=== PATIENT | male | born 1960 | race African-American/Black ===

== ENCOUNTER → 2018-05-14 15:45 | Outpatient (CLI) | payer BC, SELFPAY ==
[2018-05-14 15:51] LABS: Bacteria 0 SEEN /hpf (None Seen); Red Blood Cells-Urine 0 SEEN /hpf (0-5)
[2018-05-14 17:30] LABS: Absolute Lymphocyte Count 1.38 X10^3/ul (0.83-4.51); Absolute Neutrophil Count 3.1 X10^3/uL (2.0-7.7); Basophil# 0.03 X10^3/uL; Basophil% 0.6 % (0-1); Color, Urine Yellow (Yellow); Eosinophil# 0.23 X10^3/uL; Eosinophils% 4.4 % (0-5); Glucose, Dipstick Normal (Normal); Hematocrit 49.6 % (40-54); Hemoglobin 16.5 g/dl (13.0-16.5); Ketone-Dipstick Negative (Negative); Leukocyte Esterase-Dipstick 25 /ul (Negative); Lymphocyte # 1.38 X10^3/ul (4.0); Lymphocyte % 26.4 % (19-41); Mean Corp Hgb Conc 33.3 g/gl (32-36); Mean Corpuscular Hgb 32.8 pg (27.0-32.0); Mean Corpuscular Volume 98.6 fL (80-94); Mean Platelet Vol. 11.4 fl (6.2-12.0); Monocyte# 0.49 X10^3/uL; Monocyte% 9.4 % (0-10); Neutrophil # 3.09 X10^3/uL (2.7-7.7); Nitrite-Dipstick Negative (Negative); Occult Blood-Urine Negative /ul (Negative); Platelet Count 244 K/mm3 (150-450); Protein-Dipstick Negative (Negative); RBC Distribution Width CV 13.3 % (11.6-14.6); RBC Distribution Width SD 48.1 fl (35.1-43.9); Red Blood Count 5.03 M/mm3 (4.6-6.2); Specific Gravity, Urine 1.025 (1.002-1.030); Urine Bilirubin Dipstick Negative (Negative); Urine Clarity Clear (Clear); Urine Urobilinogen 1 mg/dl (Normal); White Blood Count 5.2 K/mm3 (4.4-11.0)
[2018-05-14 17:31] LABS: POSITIVE COUNT NO; POSITIVE DIFFERENTIAL NO; POSITIVE MORPHOLOGY NO
[2018-05-14 17:47] LABS: Squamous Epithelial Cells - UA 0-5 SEEN /hpf (0-5); White Blood Cells 0-5 SEEN /hpf (0-5)
[2018-05-14 17:48] LABS: Mucous, Urine 1+ /hpf (<or=2+)
[2018-05-14 17:50] LABS: Hemoglobin A1c 5.3 % (4.2-6.3)
[2018-05-14 17:58] LABS: Vitamin B12 341 pg/mL (211-911); Vitamin D,25 Hydroxy 9.9 ng/mL (29.95-100.01)
[2018-05-14 18:03] LABS: AST(SGOT) 19 U/L (15-37); Alanine Aminotransfer ALT/SGPT 31 U/L (16-61); Albumin, Serum 3.5 g/dL (3.2-5.0); Alkaline Phosphatase 85 U/L (45-117); Anion Gap 8 (5-15); BUN 13 mg/dL (7-18); BUN/Creat Ratio 14.4 RATIO (10-20); Calcium,Total 8.2 mg/dL (8.5-10.1); Chloride 110 mmol/L (98-107); Cholesterol 167 mg/dL (200); EST Glomerular Filtration Rate 92 mL/min (>60); Est Glom Filt Rate - Afr Amer 111 mL/min (>60); Globulin 3.6 g/dL (2.2-4.2); Glucose 94 mg/dL (74-106); High Density Lipoprotein 44 mg/dL; Potassium 3.9 mmol/L (3.5-5.1); Protein, Total 7.1 g/dL (6.4-8.2); Sodium Level 140 mmol/L (136-145); Thyroid Stim Hormone (TSH) 0.98 uIU/mL (0.358-3.74); Triglycerides 121 mg/dL; Very Low Density Lipoprotein 24 mg/dL (5-40)
[2018-05-19 14:50] LABS: Testosterone, Free 8.97 ng/dL (5.00-21.00)
[2018-05-20 07:57] LABS: Testosterone, % Free 1.24 % (1.50-4.20); Testosterone, Total 723 ng/dL (264-916)
== END ==
PROVIDERS: Family Provider Family Medicine; PCP Family Medicine; Visit Provider Family Medicine
DX: R53.83 Other fatigue (principal); F52.21 Male erectile disorder; Z83.3 Family history of diabetes mellitus; Z12.5 Encounter for screening for malignant neoplasm of prostate
CPT/HCPCS: 36415; 80053; 80061; 81001; 82306; 82607; 83036; 84153; 84402; 84403; 84443; 85025; G0103

== ENCOUNTER → 2018-06-26 15:48 | Outpatient (CLI) | payer BC, SELFPAY | PROVIDERS: Visit Provider Urology | DX: R97.20 Elevated prostate specific antigen [PSA] (principal) ==

== ENCOUNTER → 2018-06-27 09:55 | Outpatient (CLI) | payer BC, SELFPAY ==
--- NOTE | 2018-06-26 08:00 | PROSBIL_PTH ---
PATIENT: ERNESTO BAZAN LOC: [facility] U#:[id number] AGE/SX: 65/M ROOM: RE06/27/[address]: Dr. Bandar Oliva MD : 1960 BED: DIS: SPEC #: [id number] RECD: 06/26/18 15:48 STATUS: ANSRIN RIRI #: [id number] JOHNNIE: 06/26/18 08:[address]: Bandar Oliva DEPT: SURGICAL PATHOLOGY RECD BY: Anders Quinn ENTERED: 06/27/18 10:32 SP TYPE: PROST BX CHIKI DR: Dr. Primitivo You MD Tissues: A - PROSTATE RIGHT B - PROSTATE RIGHT C - PROSTATE RIGHT D - PROSTATE LEFT E - PROSTATE LEFT F - PROSTATE LEFT Procedures: PROSTATE BX HEADER OPERATION: Prostate biopsy PRE-OP DIAGNOSIS: R97.20 TISSUE SUBMITTED: A - Right apex, B - Right mid, C - Right base, D - Left apex, E - Left mid, F - Left base MICROSCOPIC DIAGNOSIS A. Right prostate, apex, core biopsy: Adenocarcinoma: [place] grade: 6 (3+3) Cores involved: 1 out of 1 Tissue involved: 65% Perineural invasion ? focally present Greatest tumor length: 7 mm B. Right prostate, mid, core biopsy: Adenocarcinoma: [place] grade: 6 (3+3) Cores involved: 2 out of 2 Tissue involved: 55% Perineural invasion: focally present Greatest tumor length: 8 mm C. Right prostate, base, core biopsy: Mild chronic inflammation. D. Left prostate, apex, core biopsy: Adenocarcinoma: Tiesha grade: 6 (3+3) Cores involved: 1 out of 1 Tissue involved: 70% Perineural invasion: Not identified Greatest tumor length: 7mm (discontinuous) E. Left prostate, mid, core biopsy: Adenocarcinoma: Tiesha grade: 6(3+3) Cores involved: 2 out of 2 Perineural invasion: focally present Greatest tumor length: 12 mm (discontinuous) F. Left prostate, base, core biopsy: Adenocarcinoma: Tiesha grade: 6 (3+3) Cores involved: 2 out of 2 Perineural invasion: focally present Greatest tumor length: 9 mm AM:ramon 06/30/18 MICROSCOPIC DESCRIPTION Slides are reviewed. GROSS DESCRIPTION A - Received is one container designated prostate, right apex. The specimen consists of one elongated fragments of light burns-white soft tissue each measuring 1.5 cm in length and 0.1 cm in diameter. The specimen is totally submitted in one cassette. B - Received is one container designated prostate, right mid. The specimen consists of two elongated fragments of light burns-white soft tissue each measuring 1.2 cm in length and 0.1 cm in diameter. The specimen is totally submitted in one cassette. C - Received is one container designated prostate, right base. The specimen consists of two elongated fragments of light burns-white soft tissue each measuring 1 cm in length and 0.1 cm in diameter. The specimen is totally submitted in one cassette. D - Received is one container designated prostate, left apex. The specimen consists of one elongated fragments of light burns-white soft tissue each measuring 1.5 cm in length and 0.1 cm in diameter. The specimen is totally submitted in one cassette. E - Received is one container designated prostate, left mid. The specimen consists of two elongated fragments of light burns-white soft tissue each measuring 1.5 cm in length and 0.1 cm in diameter. The specimen is totally submitted in one cassette. F - Received is one container designated prostate, left base. The specimen consists of two elongated fragments of light burns-white soft tissue each measuring 1.5 cm in length and 0.1 cm in diameter. The specimen is totally submitted in one cassette. / AM:sp 06/27/18 TC: 0 CPT: 00407 x6
== END ==
PROVIDERS: Family Provider Family Medicine; PCP Family Medicine; Visit Provider Urology
DX: R97.20 Elevated prostate specific antigen [PSA] (principal)
CPT/HCPCS: 88305; G0416

== ENCOUNTER → 2018-07-18 08:56 | Outpatient (CLI) | payer BC, SELFPAY ==
--- NOTE | 2018-07-18 08:59 | CT_ITS ---
STUDY: CT ABDOMEN AND PELVIS WITH CONTRAST REASON FOR EXAM: Male, 58 years old. New diagnosis of prostate cancer RADIATION DOSAGE (If Supplied By Facility): CTDIvol = ( 13.62 ) mGy, DLP = ( 902.70 ) mGycm TECHNIQUE: Transaxial images were obtained from the dome of the diaphragm to the symphysis pubis without oral contrast. 100 ml of Isovue 300 contrast was administered. Sagittal and coronal images were reconstructed. Individualized dose optimization techniques were used for this CT. COMPARISON: None. FINDINGS: The visualized lung bases are unremarkable. The visualized portions of the heart are within normal limits. There is a 1.2 cm cyst of the posterior left hepatic lobe. There is a heterogeneously enhancing hypoechoic focus of the posterior right hepatic lobe measuring 2.0 cm, suggestive of a hemangioma. Normal gallbladder and extrahepatic biliary system. Normal spleen. Normal pancreas. Normal bilateral adrenal glands. Normal right kidney. Normal left kidney. Normal visualized stomach. Normal small intestine. Normal colon. The appendix is visualized and appears normal. Normal abdominal aorta. Normal inferior vena cava. Normal retroperitoneum. Normal urinary bladder. The prostate is slightly generous in size. There is a heterogeneous enhancement pattern of such. The periprostatic soft tissue fascial planes are preserved. The seminal vesicles and seminal vesicle angles appear within normal limits. There is a small umbilical hernia containing fat. There are diffuse degenerative changes of the visualized thoracolumbar spine. There is a subcentimeter sclerotic focus of the left iliac wing more likely representing benign process such as bone island. There are bilateral degenerative changes of the SI joints. CT/Abdomen/Pelvis WITH Contrast IMPRESSION: 1. 1.2 cm cyst of the posterior left hepatic lobe. 2. Heterogeneously enhancing hypoechoic focus of the posterior right hepatic lobe measuring 2.0 cm, having an enhancement pattern suggestive of an hemangioma. Ultrasonographic correlation is recommended. 3. The prostate is slightly generous in size and heterogeneous in enhancement pattern. 4. There is no evidence of deep pelvic or retroperitoneal adenopathy. 5. Small fat-containing umbilical hernia. 6. Subcentimeter sclerotic focus of the left iliac wing more likely representing benign process such as bone island. 7. Diffuse degenerative changes of the visualized thoracolumbar spine. There is no definite evidence of osseous metastatic disease. Electronically Signed: Emiliano Doran MD at 19:30 EDT , Service support ,
[2018-07-18 09:21] LABS: CREATININE FINGERSTICK 0.9 mg/dL (0.70-1.30); EGFR FINGERSTICK > 60.0000 mL/min (>60)
--- NOTE | 2018-07-18 09:27 | NM_ITS ---
CLINICAL: 58-year-old male with reported history of carcinoma of the prostate. WHOLE BODY 99m Tc MDP RADIONUCLIDE BONE SCINTIGRAPHY COMPARISON: CT of the abdomen-pelvis report 07/18/2018 FINDINGS: Following the intravenous administration of 26.0 mCi of 99m Tc MDP, whole body bone images reveal: 1. Increased radiopharmaceutical concentration is identified in the acromioclavicular compartments of both shoulders, sternoclavicular compartment of the left shoulder, mid and lower cervical spine posteriorly on the left and right, fourth and ninth thoracic vertebra posteriorly on the left, the medial tibial compartment of the left knee, bilateral ankles, left forefoot. 2. The remaining skeletal structures are scintigraphically unremarkable with normal-appearing renal images and urinary bladder activity identified. Facilitated uptake is noted at the bilateral costosternal junction consistent with an inflammatory process. NM/Bone Scan Whole Body IMPRESSION: 1. The increase in radiopharmaceutical concentration identified in the cervical and thoracic spine, bilateral shoulders, left knee, right and left ankles and left forefoot is most consistent with degenerative arthritis. 2. There is no definitive typical scintigraphic evidence of diffuse axial skeletal metastatic disease on the current examination. Electronically Signed: Deyvi Barry DO at 10:33 EDT Tel , Service support ,
== END ==
PROVIDERS: Family Provider Family Medicine; PCP Family Medicine; Visit Provider Urology
DX: Z01.812 Encounter for preprocedural laboratory examination (principal); C61 Malignant neoplasm of prostate
CPT/HCPCS: 74177; 78306; Q9967; A4216

== ENCOUNTER 2018-08-27 17:08 | Inpatient (IN) | payer BC, SELFPAY ==
[2018-08-21 15:05] VITALS: BP 137/80; PULSE 57; RESP 16; TEMP 36.6; O2SAT 98; BMI 28.0
--- NOTE | 2018-08-21 15:16 | SDCEKG_ITS ---
Test Reason : Blood Pressure : / mmHG Vent. Rate : 050 BPM Atrial Rate : 050 BPM P-R Int : 182 ms QRS Dur : 078 ms QT Int : 462 ms P-R-T Axes : 074 -24 017 degrees QTc Int : 421 ms Sinus bradycardia Cannot rule out Inferior infarct , age undetermined Abnormal ECG Confirmed by INEZ REID, MINE ([id number]), web content editor HENRRY ZIMMER ([id number]) on 08/27/2018 1:13:56 PM Referred By: Bandar Oliva Confirmed By:MINE WILEY MD
[2018-08-21 16:10] LABS: Hematocrit 48.7 % (40-54); Hemoglobin 16.1 g/dl (13.0-16.5); Mean Corp Hgb Conc 33.1 g/gl (32-36); Mean Corpuscular Hgb 32.9 pg (27.0-32.0); Mean Corpuscular Volume 99.6 fL (80-94); Mean Platelet Vol. 10.4 fl (6.2-12.0); Platelet Count 253 K/mm3 (150-450); RBC Distribution Width CV 13.7 % (11.6-14.6); Red Blood Count 4.89 M/mm3 (4.6-6.2); White Blood Count 4.8 K/mm3 (4.4-11.0)
[2018-08-21 16:15] LABS: Scan Indicated on CBC? Y/N NO
[2018-08-27] VITALS (10 sets, daily range): BP systolic 143–219; BP diastolic 81–116; PULSE 49–78; RESP 16–20; TEMP 36.2–37.8; O2SAT 96–100; BMI 28.0
--- NOTE | 2018-08-27 12:05 | PROST_PTH ---
PATIENT: ERNESTO BAZAN LOC: [facility] U#:[id number] AGE/SX: 58/M ROOM: [facility] RE08/27/[address]: Dr. Bandar Oliva MD : 1960 BED: 1 DIS: 08/28/2018 SPEC #: [id number] RECD: 08/27/18 16:15 STATUS: NASRIN MENEZES #: [id number] JOHNNIE: 08/27/18 12:[address]: Bandar Oliva DEPT: SURGICAL PATHOLOGY RECD BY: Deyvi Garcia ENTERED: 08/28/18 11:23 SP TYPE: PROSTATE OTHR DR: Dr. Primitivo You MD Tissues: Prostate, NOS Procedures: Surgery Specimen Level HEADER OPERATION: Lap robotic radical prostatectomy, nerve monitoring PRE-OP DIAGNOSIS: Prostate cancer, elevated PSA TISSUE SUBMITTED: Prostate MICROSCOPIC DIAGNOSIS Prostate, radical prostatectomy: Prostatic adenocarcinoma. See cancer summary below. SJ:trudy 09/02/18 PROSTATE CANCER (RADICAL) SUMMARY: Procedure - radical prostatectomy Prostate size - 5 cm transversely, 4.5 cm anterior-posteriorly and 3.5 cm mid, apex to base Prostate weight - 55.4 gm Lymph node sampling - no lymph nodes present Histologic type - adenocarcinoma (acinar, not otherwise specified) Histologic grade (Tiesha Pattern): Primary pattern - 3 Secondary pattern - 4 Tertiary pattern - not applicable Total Tiesha score - 7 Tumor Quantitation: Proportion (%) of prostate involved by tumor - ~40% Extraprostatic extension - present, focal, left lobe posterior-lateral surface. Seminal vesicle invasion - not identified Margins - apical margin is involved by invasive carcinoma (right and left lobe). Treatment effect on carcinoma - no known presurgical therapy. Lymph-Vascular invasion - not identified Perineural invasion - present, frequent Regional lymph nodes - no nodes submitted or found. Distant metastasis - not applicable Additional pathologic findings - benign prostatic hyperplasia and chronic inflammation. - Focal high-grade prostatic intraepithelial neoplasia (HGPIN). Ancillary studies - not performed PATHOLOGIC STAGE: pT3a pNx Mx The above summary is in compliance with [employer] [place] [employer] (CAP) Cancer Protocols Checklist and [place] Joint Committee on Cancer (AJCC), Staging Manual, 8th Ed. COMMENT The tumor in the right lobe is present in the apical and mid portion of the prostate (slide #3, 5, 7, 9, 11 and 13) and measures approximately 1 x 0.7 cm (measured microscopically). The tumor in the left lobe is present in the apical, mid and basal portion of the prostate (slide #3, 6, 8, 10, 12, 14, 16 and 18) and measures approximately 3 x 1.5 x 1 cm (measured microscopically). Please make reference to previous specimen ([id number]) right prostate apex and mid and left prostate apex, mid and base, core biopsies with diagnosis of prostatic adenocarcinoma.. Case has been reviewed in consultation with Dr. Edwards who concurs with the above diagnosis. IDC:AM MICROSCOPIC DESCRIPTION Slides are reviewed. GROSS DESCRIPTION Received in fixative is one container labeled with the patient's name and designated prostate. The specimen consists of a radical prostatectomy specimen consisting of prostate and bilateral seminal vesicle weighing 55.4 gm. The prostate measures 5 cm transversely, 4.5 cm anterior-posteriorly and 3.5 cm from apex to base. The right seminal vesicle measures 3 x 1.5 x 1 cm and the right vas deferens measures 5 cm in length and up to 0.5 cm in diameter. The left seminal vesicle measures 3 x 2 x 1 cm and the left vas deferens measures 3 cm in length and up to 0.5 cm in diameter. The specimen is inked as follows: prostate anterior surface - yellow, posterior surface - black, right lateral surface - blue, left lateral surface - green. Seminal vesicle and vas deferens are inked as follows: right and left seminal vesicle posterior surface - black, right seminal vesicle and vas deferens anterior surface - blue, left seminal vesicle and vas deferens anterior surface - green. Serial sections do not reveal any mass lesion. Traffic Observer sections are submitted in 20 cassettes as follows: 1 - right seminal vesicle and vas deferens, 2 - left seminal vesicle and vas deferens, 3 - apical (urethral margin enface), 4 - bladder base margin, enface, 5-10 - apical portion prostate, 11-14 - mid portion prostate, 15-20 - basal portion prostate (cassettes 19 & 20 contain the most basal portion of the prostate). / SJ:trudy 08/28/18 TC:0 CPT: 88499
--- NOTE | 2018-08-27 12:18 | PCM.DC.URO ---
Discharge Diet: Light diet - advance as tolerated Discharge Activity: Return to Normal Activity Call your doctor if your incision/area has: Continuous Slow Oozing, Sudden Increased Bleeding, Increased Pain/ Swelling, Increased Redness, Foul Smelling Discharge, Swelling at the incision site Suture Line Care: Avoid Pulling/Pushing, Avoid Pinching/Bending Catheter: Saucedo to leg bag, Saucedo to large bag Drain: [place] Instructions: Discharge Instructions for Radical Prostatectomy Allergies/Adverse Reactions: Allergies No Known Allergies Allergy (Verified 08/21/18 15:04) Medications to take at Discharge Ciprofloxacin [Cipro] 500 mg PO BID #20 tab 08/27/18 Docusate Sodium [Colace] 100 mg PO BID #20 cap 08/27/18 Hydrocodone Bitart/Apap 5-325 [[place] 5MG-325MG] 1 tab PO Q4H PRN PRN 5 Days #10 tab 08/27/18 The following prescriptions were given: Hydrocodone Bitart/Apap 5-325 [[place] 5MG-325MG] 1 tab PO Q4H PRN PRN 5 Days #10 tab PRN Reason: Pain Ciprofloxacin [Cipro] 500 mg PO BID #20 tab Docusate Sodium [Colace] 100 mg PO BID #20 cap Primary Care Physician: Primitivo You MD [Primary Care Provider] - Test Results: Test results from this visit will be discussed in further detail at your follow-up appointment, if applicable. Please Follow Up With: Bandar Oliva MD When: please call to make an appointment for next Proposed Discharge Date: 08/28/18
[2018-08-27] MEDS: Cefazolin 2 GM in 0.9% Normal Saline 100 ML IV (12:45)
[2018-08-27] MEDS: Bupivacaine 0.5% PF 10 ML VIAL ×2 (12:47→15:00)
[2018-08-27] MEDS: 0.9% Normal Saline 1,000 ML 125 ML IV ×2 (12:53→18:17)
--- NOTE | 2018-08-27 15:04 | OP.PCM_ITS ---
Report of Operation Date of Procedure: 08/27/18 Pre-Operative Diagnosis: Prostate cancer Post-Operative Diagnosis: Same Surgery/Procedure Performed:: Laparoscopic robotic assisted radical prostatectomy, EMG monitoring of pelvic lymph nodes Description of Surgical Findings:: 58-year-old male taken back to the operating room after smooth induction of general anesthesia he was placed in dorsal lithotomy position with approach to the prostate with a robotic system, the abdomen was shaved prepped and draped in usual sterile fashion made an incision across the umbilicus, advanced the Veress needle into the peritoneal cavity and filled the peritoneal cavity CO2 gas and then placed my ports for robotic prostatectomy, I then proceeded with the dissection in the posterior aspect of the prostate and bladder dissected out the right vas deferens and left vas deferens dissected out the right seminal vesicle and left seminal vesicle I then created a nice space underneath the prostate lowering and incising the fascia and lifting the prostate off the rectum., I then placed traction on the bladder created the space of Retzius using the fourth arm for placed traction of the bladder once increase his rated the space of Retzius nicely dissected the fat off the prostate this was sent off as a specimen I then incised the endopelvic fascia in the right side and the pelvic mesh in the left side dissected up to the apex dissected around the dorsal vein complex then placed a stitch in the dorsal vein complex with a 0 Vicryl once the dorsal vein complex was controlled with a stitch that came back to the lateral aspect of the prostate incised the fascia and the prostate and then this allowed me to release the neurovascular bundles on the right side and the release of the neurovascular bundles on the left side, I then came back to the junction between the bladder and prostate dissected between the bladder and prostate electrocautery until and Encountered the catheter catheter was then pulled upward traction I then dissected posteriorly between the bladder and prostate until it reached the seminal vesicle and vas deferens I then identified the pedicle of the neurovascular bundle on the right side clipped the pedicle ends and swept the neurovascular bundle off the prostate posteriorly all the way up to the apex went to the left side clipped the pedicles identified the neurovascular bundle swept the neurovascular bundle in the left side of the prostate all the way to the apex and then transected to the dorsal vein complex there is no bleeding I then transected through the urethra and then transected to the posterior extension to the obvious fascia and the prostate was then handed off as a specimen, during the dissection I did use the EMG monitoring electrodes were introduced supraumbilically umbilically and we checked the pel joel nerves for stimulation on the right side and the left side both the nerves were identified before dissection and identified after the dissection both the nerves were spared and functioning with good action potentials on the right side and the left side of the pelvis. We attempted to do the monitoring of the sphincter will be could not get any responses thought that patient was possible partially paralyzed at that point and therefore the we did not get any responses. I then completed the anastomosis between the bladder neck and the urethra with 30V lock stitch in a running fashion from the 6:00 to the 12 o'clock position once this was completed we put a new catheter into the bladder irrigated there was no leakage from the anastomosis for 10 cc in the team 10 cc in the balloon pulled back to the bladder neck we then extracted the prostate to the supra umbilical incision closed the supraumbilical incision with interrupted 0 Vicryl skin closed the air seal port port with a Gerardo Delvalle stitch all the ports were removed under direct visualization subcuticular stitches were placed in the incisions and everything was closed patient anesthetic is currently being reversed. Type of Anesthesia:: General Drains: Saucedo Estimated Blood Loss (mL): 50cc - Admit VTE Documentation VTE Present on Admission: No VTE Mechan Device Prophylaxis: SCD's VTE Pharm Prophylaxis ordered?: No Reason prophylaxis not ordered:: Treatment Not Indicated
[2018-08-27 15:39] LABS: Hematocrit 51.4 % (40-54); Hemoglobin 16.3 g/dl (13.0-16.5); Mean Corp Hgb Conc 31.7 g/gl (32-36); Mean Corpuscular Hgb 32.3 pg (27.0-32.0); Mean Corpuscular Volume 101.8 fL (80-94); Platelet Count 247 K/mm3 (150-450); RBC Distribution Width CV 13.2 % (11.6-14.6); RBC Distribution Width SD 49.3 fl (35.1-43.9); Red Blood Count 5.05 M/mm3 (4.6-6.2); White Blood Count 9.4 K/mm3 (4.4-11.0)
[2018-08-27 15:42] LABS: Scan Indicated on CBC? Y/N NO
[2018-08-27 16:01] LABS: Anion Gap 10 (5-15); BUN 12 mg/dL (7-18); BUN/Creat Ratio 13.2 RATIO (10-20); Calcium,Total 8.1 mg/dL (8.5-10.1); Chloride 107 mmol/L (98-107); Creatinine, Serum 0.91 mg/dL (0.70-1.30); EST Glomerular Filtration Rate 90 mL/min (>60); Est Glom Filt Rate - Afr Amer 109 mL/min (>60); Estimated Creatinine Clearance 90.25 ml/min; Glucose 88 mg/dL (74-106); Potassium 4.1 mmol/L (3.5-5.1); Sodium Level 138 mmol/L (136-145)
[2018-08-27] MEDS: Ketorolac 15 MG/ML Vial IV ×2 (18:14→23:52)
[2018-08-27] MEDS: Docusate Sodium 100 MG Capsule 200 MG PO (21:11)
[2018-08-27] MEDS: Ciprofloxacin 500 MG Tablet PO (21:11)
[2018-08-27] MEDS: HYDROcodone Bitartrate/Apap 5/325 Tablet PO (22:41)
[2018-08-28] MEDS: 0.9% Normal Saline 1,000 ML 125 ML IV (02:21)
[2018-08-28 03:00] VITALS: BP 148/72; PULSE 72; RESP 16; TEMP 36.8; O2SAT 98
[2018-08-28] MEDS: Ketorolac 15 MG/ML Vial IV ×2 (05:05→11:07)
[2018-08-28 06:30] LABS: Hematocrit 42.4 % (40-54); Hemoglobin 13.7 g/dl (13.0-16.5); Mean Corp Hgb Conc 32.3 g/gl (32-36); Mean Corpuscular Hgb 32.5 pg (27.0-32.0); Mean Corpuscular Volume 100.5 fL (80-94); Mean Platelet Vol. 10.5 fl (6.2-12.0); Platelet Count 216 K/mm3 (150-450); RBC Distribution Width CV 13.3 % (11.6-14.6); RBC Distribution Width SD 48.6 fl (35.1-43.9); Red Blood Count 4.22 M/mm3 (4.6-6.2); White Blood Count 6.3 K/mm3 (4.4-11.0)
[2018-08-28 06:33] LABS: Scan Indicated on CBC? Y/N NO
[2018-08-28 07:20] LABS: Anion Gap 7 (5-15); BUN 8 mg/dL (7-18); BUN/Creat Ratio 9.8 RATIO (10-20); Calcium,Total 7.5 mg/dL (8.5-10.1); Chloride 110 mmol/L (98-107); Creatinine, Serum 0.81 mg/dL (0.70-1.30); EST Glomerular Filtration Rate 103 mL/min (>60); Est Glom Filt Rate - Afr Amer 125 mL/min (>60); Estimated Creatinine Clearance 101.39 ml/min; Glucose 83 mg/dL (74-106); Potassium 3.8 mmol/L (3.5-5.1); Sodium Level 141 mmol/L (136-145)
[2018-08-28 07:45] VITALS: BP 140/70; PULSE 53; RESP 18; TEMP 37; O2SAT 98
[2018-08-28] MEDS: Docusate Sodium 100 MG Capsule 200 MG PO (07:46)
[2018-08-28] MEDS: Ciprofloxacin 500 MG Tablet PO (09:29)
--- NOTE | 2018-08-28 10:10 | CASEMGMT ---
RN LESLI Face to Face with patient for initial transition planning/care coordination assessment. RN CM introduced self and role at [facility]. Patient lying in bed, alert and oriented. Patient willing to participate in assessment and is able to answer all questions appropriately. Care providers, pharmacy, and demographics verified. Patient wishes to discharge home, denies need for home health at this time. Patient states he has no further needs or concerns at this time. CM to follow for discharge planning needs that may arise. PCP: Avelino Specialists: Pj urologist Preferred Pharmacy: [facility] Insurance: Lolo Prescription Benefit: Lolo Living Will/HPOA: None LNOK: Mother Living Arrangements: Patient lives alone in apt able to navigate stairs. Patient states his mother will be staying with him. Transportation: Mother DME/HHC: Denies need for DME and HHC Disposition Plan: Patient to discharge home with family support and follow-up plans in place. Elsy ANDERSON, RN, CM
== END 2018-08-28 13:07 | disposition home or self-care (01) | DRG 708 ==
LOC: MS3 08-28 09:20 → SDC 08-28 09:20
PROVIDERS: Admitting Provider Urology; Family Provider Family Medicine; PCP Family Medicine; Referring Provider Urology; Visit Provider Urology
PROC: 0VT04ZZ Resection of Prostate, Percutaneous Endoscopic Approach (ICD-10-PCS; CPT 55866; principal; 2018-08-27 11:45)
DX: C61 Malignant neoplasm of prostate (principal)
CPT/HCPCS: 36415; 80048; 85027; 86850; 86900; 88309; 93005; J7030; J7120; A4216; J2405

== ENCOUNTER 2018-08-29 20:11 | Emergency (ER) | payer BC, SELFPAY ==
[2018-08-29 20:12] VITALS: BP 162/95; PULSE 81; RESP 20; TEMP 37.1; O2SAT 98; BMI 25.7
[2018-08-29] MEDS: Lidocaine 4% 5 ML Ampul 2 ML INHALATION (20:58)
[2018-08-29 21:12] VITALS: PULSE 80; RESP 20
--- NOTE | 2018-08-29 21:23 | ED.VISSUMM ---
- ER Visit Summary Date of Service: 08/29/18 Chief Complaint: Sliver of plan stuck near larynx History of Present Illness: The patient is a 58 M who was eating up Adis presents because he feels a piece of the performed is stuck in the larynx region. He denies dysphonia or dysphasia. He denies shortness of breath. He is able to swallow. He has no prior history of obstruction secondary to food particles or bolus. Physical Examination: Vital signs noted and remarkable for blood pressure 162/95. Head is atraumatic no cephalic. Pupils equal round reactive paradoxic muscle intact. Sclerae anicteric. Uvula midline. There is no erythema or exudate. Trachea is midline. There is no stridor. There is no dysphonia. There is no drooling. Heart is regular without murmur, gallop or rub. S1 and S2 are normal. Lungs are clear to auscultation with good movement of air bilaterally. Test Results: None Emergency Department Course and Treatment: Patient was anesthetized with 4% lidocaine by nebulizer. Using a dental mirror indirect laryngoscopy was performed. Patient gag during the procedure. When I was able to visualize nothing was noted. He apparently gagged again and states it passed. Treatment Plan: Appropriate home-going instructions and follow-up with PCP as needed Disposition: Discharged home in stable improved condition Impression: Supraglottic foreign body passed This note was generated with [employer] dictation software. It may contain incorrect words, spelling, and punctuation that were not noted in review of the chart prior to signing ED Disposition - Plan for ED Patient: Disposition: Home or Assisted Living Chief Complaint: Foreign Body Instructions: ED Foreign Body Esophageal Rslv Referrals: Primitivo You MD [Primary Care Provider] - As Needed
--- NOTE | 2018-08-29 21:26 | ED.DCSUM_ITS ---
- ER Visit Summary Date of Service: 08/29/18 Chief Complaint: Sliver of plan stuck near larynx History of Present Illness: The patient is a 58 M who was eating up Adis presents because he feels a piece of the performed is stuck in the larynx region. He denies dysphonia or dysphasia. He denies shortness of breath. He is able to swallow. He has no prior history of obstruction secondary to food particles or bolus. Physical Examination: Vital signs noted and remarkable for blood pressure 162/95. Head is atraumatic no cephalic. Pupils equal round reactive paradoxic muscle intact. Sclerae anicteric. Uvula midline. There is no erythema or exudate. Trachea is midline. There is no stridor. There is no dysphonia. There is no drooling. Heart is regular without murmur, gallop or rub. S1 and S2 are normal. Lungs are clear to auscultation with good movement of air bilate rally. Test Results: None Emergency Department Course and Treatment: Patient was anesthetized with 4% lidocaine by nebulizer. Using a dental mirror indirect laryngoscopy was performed. Patient gag during the procedure. When I was able to visualize nothing was noted. He apparently gagged again and states it passed. Treatment Plan: Appropriate home-going instructions and follow-up with PCP as needed Disposition: Discharged home in stable improved condition Impression: Supraglottic foreign body passed This note was generated with [employer] dictation software. It may contain incorrect words, spelling, and punctuation that were not noted in review of the chart p rior to signing ED Disposition - Plan for ED Patient: Disposition: Home or Assisted Living Chief Complaint: Foreign Body Instructions: ED Foreign Body Esophageal Rslv Referrals: Primitivo You MD [Primary Care Provider] - As Needed
[2018-08-29 21:29] VITALS: BP 155/80; PULSE 85; RESP 14; O2SAT 98
== END 2018-08-29 21:30 | disposition home or self-care (01) ==
PROVIDERS: Emergency Provider Emergency Medicine; Family Provider Family Medicine; PCP Family Medicine
DX: T17.328A Food in larynx causing other injury, initial encounter (principal); X58.XXXA Exposure to other specified factors, initial encounter; Y93.9 Activity, unspecified; Y92.9 Unspecified place or not applicable; Y99.9 Unspecified external cause status; Z87.440 Personal history of urinary (tract) infections
CPT/HCPCS: 31505; 94640; 99283

== ENCOUNTER → 2018-12-09 08:29 | Outpatient (CLI) | payer BC, SELFPAY ==
[2018-12-09 11:10] LABS: PSA,Total- Diagnostic 0.01 ng/mL (0.0-4.0)
== END ==
PROVIDERS: Family Provider Family Medicine; PCP Family Medicine; Referring Provider Urology; Visit Provider Urology
DX: C61 Malignant neoplasm of prostate (principal)
CPT/HCPCS: 36415; 84153

== ENCOUNTER → 2019-04-16 08:45 | Outpatient (CLI) | payer BC, SELFPAY ==
[2019-04-16 10:31] LABS: PSA,Total- Diagnostic 0.01 ng/mL (0.0-4.0)
== END ==
PROVIDERS: Family Provider Family Medicine; PCP Family Medicine; Referring Provider Urology; Visit Provider Urology
DX: C61 Malignant neoplasm of prostate (principal)
CPT/HCPCS: 36415; 84153

== ENCOUNTER → 2019-06-26 14:42 | Outpatient (CLI) | payer BC, SELFPAY ==
[2019-06-26 15:47] LABS: Absolute Lymphocyte Count 1.72 X10^3/uL (0.83-4.51); Absolute Neutrophil Count 2.8 X10^3/uL (2.0-7.7); Basophil# 0.04 X10^3/uL; Basophil% 0.8 % (0-1); Eosinophils% 3.8 % (0-5); Hematocrit 45.6 % (40-54); Hemoglobin 14.9 g/dL (13.0-16.5); Lymphocyte # 1.72 X10^3/ul (4.0); Lymphocyte % 32.8 % (19-41); Mean Corp Hgb Conc 32.7 g/dL (32-36); Mean Corpuscular Hgb 33.3 pg (27.0-32.0); Mean Platelet Vol. 10.7 fl (6.2-12.0); Monocyte# 0.45 X10^3/uL; Monocyte% 8.6 % (0-10); NRBC Flagged by Analyzer 0 % (0-5); Neutrophil # 2.83 X10^3/uL (2.7-7.7); Neutrophil % 53.8 % (47-70); Platelet Count 229 K/mm3 (150-450); RBC Distribution Width CV 13.5 % (11.6-14.6); RBC Distribution Width SD 51.4 fl (35.1-43.9); Red Blood Count 4.47 M/mm3 (4.6-6.2); White Blood Count 5.3 K/mm3 (4.4-11.0)
[2019-06-26 16:34] LABS: Vitamin B12 287 pg/mL (211-911); Vitamin D,25 Hydroxy 11.2 ng/mL (29.95-100.01)
[2019-06-26 16:36] LABS: ALB/GLOB Ratio 0.9 RATIO (0.9-2.4); AST(SGOT) 12 U/L (15-37); Alanine Aminotransfer ALT/SGPT 23 U/L (16-61); Albumin, Serum 3.3 g/dL (3.2-5.0); Alkaline Phosphatase 86 U/L (45-117); Anion Gap 8 (5-15); BUN 10 mg/dL (7-18); BUN/Creat Ratio 12.2 RATIO (10-20); Calcium,Total 8.4 mg/dL (8.5-10.1); Chloride 113 mmol/L (98-107); Creatinine, Serum 0.82 mg/dL (0.70-1.30); EST Glomerular Filtration Rate 102 mL/min (>60); Est Glom Filt Rate - Afr Amer 123 mL/min (>60); Globulin 3.5 g/dL (2.2-4.2); Glucose 82 mg/dL (74-106); Protein, Total 6.8 g/dL (6.4-8.2); Sodium Level 144 mmol/L (136-145); Thyroid Stim Hormone (TSH) 0.83 uIU/mL (0.358-3.74)
== END ==
PROVIDERS: Family Provider Family Medicine; PCP Family Medicine; Referring Provider Family Medicine; Visit Provider Family Medicine
DX: R53.83 Other fatigue (principal)
CPT/HCPCS: 36415; 80053; 82306; 82607; 84443; 85025

== ENCOUNTER → 2019-08-18 08:45 | Outpatient (CLI) | payer BC, SELFPAY ==
[2019-08-18 10:54] LABS: PSA,Total- Diagnostic 0.02 ng/mL (0.0-4.0)
== END ==
PROVIDERS: Family Provider Family Medicine; PCP Family Medicine; Referring Provider Urology; Visit Provider Urology
DX: C61 Malignant neoplasm of prostate (principal)
CPT/HCPCS: 36415; 84153

== ENCOUNTER → 2019-11-27 16:46 | Outpatient (CLI) | payer BC, SELFPAY ==
--- NOTE | 2019-11-27 16:50 | RAD_ITS ---
STUDY: X-RAY - RIGHT KNEE REASON FOR EXAM: Male, 59 years old. right knee sprain TECHNIQUE: 4 view(s) of the knee. COMPARISON: None. FINDINGS: Normal visualized distal femur. Normal visualized proximal tibia and fibula. Normal proximal tibiofibular articulation. Mild narrowing medial femorotibial compartment. Normal lateral femorotibial compartment. Normal patellofemoral articulation. There is a soft tissue prominence in the suprapatellar region suggesting a small volume joint effusion. The soft tissue structures are unremarkable. RAD/Knee 4 or More Views IMPRESSION: Minimal narrowing of the medial compartment. Otherwise normal. Electronically Signed: Blake Pineda MD ([place]) at 17:45 EST , Service support ,
== END ==
PROVIDERS: PCP Family Medicine; Referring Provider Family Medicine; Visit Provider Family Medicine
DX: S83.91XA Sprain of unspecified site of right knee, initial encounter (principal); X58.XXXA Exposure to other specified factors, initial encounter; Y93.9 Activity, unspecified; Y92.9 Unspecified place or not applicable; Y99.9 Unspecified external cause status
CPT/HCPCS: 73564

== ENCOUNTER → 2019-12-15 09:00 | Outpatient (CLI) | payer BC, SELFPAY ==
[2019-12-15 11:07] LABS: PSA,Total- Diagnostic 0.02 ng/mL (0.0-4.0)
== END ==
PROVIDERS: PCP Family Medicine; Referring Provider Urology; Visit Provider Urology
DX: C61 Malignant neoplasm of prostate (principal)
CPT/HCPCS: 36415; 84153

== ENCOUNTER → 2020-01-04 13:12 | Outpatient (CLI) | payer BC, SELFPAY ==
--- NOTE | 2020-01-04 18:34 | SP.MBSS_ITS ---
PRIMARY / SECONDARY DIAGNOSIS: dysphagia (R13.10) REFERRING PHYSICIAN: Dr. Primitivo You MD CURRENT DIET: regular textures, thin liquids DENTITION: natural MENTAL STATUS: WNL RESPIRATORY STATUS: O2 via room air REASON FOR REFERRAL: The Patient is a 59 year old male referred for a modified barium swallow (MBS) study to objectively assess the Patients oropharyngeal swallow function under fluoroscopy secondary to reported post prandial globus sensation located at the laryngeal notch with intermittent return to the oral cavity (no reported acidic taste / quality) occurring intermittently (~ 1x per week) over the past few years. MEDICAL HISTORY: Malignant neoplasm of the prostate, status post prostate removal, nocturia, erectile dysfunction, unspecified hearing loss, unspecified vision loss. PREVIOUS MODIFIED BARIUM SWALLOW STUDY: None ASSESSMENT PARAMETERS: The Patient participated in a Modified Barium Swallow (MBS) study on 01/04/2020. This study was recorded in the lateral view and images were sent to PACs for storage. Scoring was completed through each trial using the 8- point Penetration-Aspiration Scale (PAS) and summarized via the Videofluoroscopic Dysphagia Scale (VDS) and the Bolus Residue Scale (BRS), with severity scoring through the Dysphagia Severity Rating Scale (DSRS) and the Swallowing Performance Scale (SPS), and recommended diet textures through the International Dysphagia Diet Standardisation Initiative (IDDSI) RESULTS OF THE EVALUATION: The Patient presents with mild oropharyngeal dysphagia (DSRS: 2; SPS: 3) with intermittent post prandial penetration of thin liquids secondary to mechanical factors (cervical osteophytes / diffuse idiopathic skeletal hypertrophy), OBJECTIVE ASSESSMENT OF SWALLOW FUNCTION (QUANTITATIVE ? PER TRIAL): PENETRATION / ASPIRATION SCALE (CINTRON): 1 = does not enter airway 2 = enters airway/above vocal folds/ejected 3 = enters airway/above vocal folds/not ejected 4 = enters airway/contacts vocal folds/ejected 5 = enters airway/contacts vocal folds/not ejected 6 = enters airway/below vocal folds/ejected 7 = enters airway/below vocal folds/not ejected despite effort 8 = enters airway/below vocal folds/no effort PENETRATION / ASPIRATION SCALE (SCORE): Thin liquid - 5 mL tsp.: 5* Thin liquids via cup (single sip): 4 Thin liquids via cup (single sip): 1 Thin liquids via cup (single sip): 1 Thin liquids via cup (sequential swallows): 2 Pudding via spoon: 1 Regular textured cookie: 1 Thin liquids via straw (single sip): 1 Thin liquids via straw (single sip): 1 * denotes post prandial penetration of pharyngeal retention OBJECTIVE ASSESSMENT OF SWALLOW FUNCTION (QUANTITATIVE ? AGGREGATE): VIDEOFLOROSCOPIC DYSPHAGIA SCALE (VDS): LIP CLOSURE: 0 (of 4) Intact BOLUS FORMATION: 0 (of 6) Intact MASTICATION: 0 (of 8) Intact APRAXIA: 3 (of 4.5) Moderate TONGUE TO PALATE CONTACT: PREMATURE BOLUS LOSS: 1.5 (of 4.5) <10% ORAL TRANSIT TIME: 0 (of 3) < 1.5s TRIGGERING OF PHARYNGEAL SWALLOW: 0 (of 4.5) Normal VALLECULAR RESIDUE: 4 (of 6) 10-50% LARYNGEAL ELEVATION: 0 (of 9) Normal PYRIFORM SINUS RESIDUE: 4.5 (of 13.5) <10% COATING OF PHARYNGEAL WALL: 0 (of 9) No PHARYNGEAL TRANSIT TIME: 0 (of 6) <1.0s ASPIRATION: 6 (of 12) Supraglottic penetration BOLUS RESIDUE SCALE (BRS): 4 (of 6) residue in valleculae and piriforms OBJECTIVE ASSESSMENT OF SWALLOW FUNCTION (SEVERITY GRADING): DYSPHAGIA SEVERITY RATING SCALE (DSRS): 2 (mild) SWALLOWING PERFORMANCE SCALE (SPS): 3 (mild) OBJECTIVE ASSESSMENT OF SWALLOW FUNCTION (QUALITATIVE): ORAL PREPARATORY PHASE: sufficient mastication rate and quality; sufficient anterior oral containment during oral manipulation; preserved management of breathing / bolus formation without disrupted E ? S ? E pattern ORAL TRANSITIONAL PHASE: fragmented swallowing (piecemeal deglutition) with varying degrees of discoordinated lingual movements (undulations) and inconsistent degrees of oral phase swallow onset delay (2-7 seconds in length) that may indicate an anticipatory effect (phagophobia) vs. neurogenic component; no bolus consolidation impairments; sufficient oral clearance; no clinically significant issues with premature posterior bolus loss. PHARYNGEAL PHASE: no signs of pharyngeal dyssynchrony; appropriate hyolaryngeal excursion and laryngeal vestibule closure / pressure, though noted incomplete epiglottic deflection influenced by mechanical factors (detailed below) precluding full deflection; inconsistent laryngeal vestibule pressure generated to expel penetrated material; noted pharyngeal dysmotility most prominently with thicker viscosities attributed to mechanical factors (detailed below) contributing to reduced epiglottic deflection and accompanying vallecular consolidation, and reduced pharyngoesophageal segment opening, with noted post prandial penetration of materials retained within the pharyngeal space (cleared with an involutional throat clear with fluoroscopy unit off); no signs of velopharyngeal impairments; no further penetration / aspiration throughout trials. ESOPHAGEAL PHASE: no obvious esophageal phase abnormalities observed. CONTRIBUTING / COMPLICATING FACTORS AND NOTABLE FINDINGS: upon review the Patient appears to demonstrate diffuse idiopathic skeletal hyperostosis (DISH) extending along the C-3 to C-6 levels complicating opening; pharyngeal motility, epiglottic deflection, pharyngoesophageal segment and pharyngoesophageal motility; this directly correlates with symptoms reported at onset of the assessment. RESPONSE TO STRATEGIES: all deficits managed successfully with reduction in bolus rate / volume adjustments. INTERVENTION RECOMMENDATIONS AND CONSIDERATIONS: Upon extended review and discussion with the Patient, he was able to comprehend information presented upon review and express recommended intake precautions (reduced bolus volume) to suggest high likelihood of compliance, with the Patient demonstrating excellent awareness in regards to his symptomology. No further skilled speech-language services warranted at this time targeting dysphagia. POST ASSESSMENT EDUCATION: Results and recommendations were discussed with the Patient immediately following MBS completion, with the Patient verbalizing understanding and agreement with all recommendations and education provided. I provided brief overview of signs and symptoms of aspiration, with recommendations for the Patient to further discuss symptoms with the Patients primary care provider. DIET TEXTURE RECOMMENDATIONS: Will recommend a regular textured (IDDSI: 7), thin liquid diet (IDDSI: 0) diet RECOMMENDED COMPENSATORY STRATEGIES: Consider cutting tougher textures into bite sized pieces, reduced bolus volume / rate of ingestion, liquid chaser at reasonable intervals, seated upright at 90 degrees during PO intake, remain upright for 30-60 minutes post meal (GERD precaution), medications one at a time with a liquid chaser. IMAGE COUNT: [id number] Finn Wong M.A., FELISA-COAT REPAIR INSPECTOR, CBIS MBSImP Certified, LSVT Certified [facility] Speech-Language Pathology Department [email or web address]
== END ==
PROVIDERS: PCP Family Medicine; Referring Provider Family Medicine; Visit Provider Family Medicine
DX: R13.10 Dysphagia, unspecified (principal)
CPT/HCPCS: 76000; 92611

== ENCOUNTER 2020-08-30 09:14 | Day surgery (SDC) | payer BC, SELFPAY ==
[2020-08-30] VITALS (7 sets, daily range): BP systolic 143–159; BP diastolic 75–96; PULSE 53–60; RESP 16; TEMP 36.5–37.1; O2SAT 97–100; BMI 26.0
[2020-08-30] MEDS: Lactated Ringers 1,000 ML 100 ML IV (09:50)
--- NOTE | 2020-08-30 10:13 | H&P.OPEN ---
History of Present Illness Date of Admission: 08/30/20 The patient is a 60 year old M presents for screening colonoscopy. He has never had a colonoscopy in the past. He does not complain of any abdominal pain or blood in his stool. He denies family history of colon cancer. He is on no blood thinners. Past Medical/Surgical History - Planned Operation Planned Operative Procedure/s: COLONOSCOPY Date of Operative Procedure: 08/30/20 Permit Signed: Yes S.O.S: No Is This Patient Having a Total Joint: No - Previous Hospitalizations/Surgeries HX Hospitalizations: No HX of Surgeries: LAP ROBOTIC RADICAL PROSTATECTOMY 08/2018 Any Problems With Anesthesia: No You/Your Family Experience Fever (Hyperthermia) With Anes: No Cholinesterase deficiency: No - Cardiovascular Hx Chest Pain within Last 2 months: No Hx of Irregular Heartbeat and/or Afib: No Hx Heart Attack: No Hx Congestive Heart Failure: No Hx Rheumatic Fever: No Hx Hypertension: No - ON MEDS AT ONE TIME THEN D/C'D D/T NOT NEEDING Hx Internal Defibrillator: No Hx Pacemaker: No Hx Cardiac Catheterization: No Hx Cardiac Surgery/Stents/Etc.: No Hx Stress Test: No HX Edema: No Hx Pain in Legs when Walking/Leg Cramps: No - Respiratory Chronic Cough: No HX of Shortness of Breath: No Hoarseness: No Hx Chronic Obstructive Pulmonary Disease (COPD): No Hx Asthma: No Hx Emphysema: No Hx Sleep Apnea: No Hx Oxygen Use at Home: No Hx Respiratory Tract Infection/Cold (presently): No Do You Snore Loudly (louder than talking or can be heard): No Do You Often Feel Tired/ Fatigued/ Sleepy Dring Daytime?: No Has Anyone Observed You Stop Breathing During Sleep?: No Result (for STOP score): Negative Hx Smoking: Yes Smoking Status: Current some day smoker - Gastrointestinal Hx Gastroesophageal Reflux: No Hx Gastrointestinal Disorders: No Hx Gastrointestinal Bleed: No Hx Ulcer: No Hx Hiatal Hernia: No Difficulty Chewing/Swallowing: No Recent Onset of Swallowing Problems: No Special diet followed at home: No Hx Unplanned Weight Loss of 20#: No HX Unplanned Weight Gain of 20#: No - Neurological Hx Seizures: No HX Syncope/Blackout Spells/Unconsciousness: No Hx CVA/Stroke: No Hx Transient Ischemic Attacks (TIA): No Hx Multiple Sclerosis: No Hx Parkinson's Disease: No Hx Head/Neck Injury: No Hx Headaches: No Hx Back Injury/Pain: No Recent Onset of Speech Difficulty: No Restless Legs: No Does patient have nerve stimulator: No - Blood Disorder Hx Leukemia: No Bleeding Tendencies: No Hx Deep Vein Thrombosis: No Hx High Cholesterol: No Blood Transmitted Disease: No Hx Hepatitis: No Hx Cirrhosis: No Hx Anemia: No Hx Blood Disorders: No - Genitourinary Hx Renal Disease: No - Musculoskeletal Hx Arthritis: No Hx Rheumatoid Arthritis: No Hx Gout: No Recent Onset of an Orthopedic Problem: No - Endocrine Hx Diabetes: No Thyroid Disease: No Hx Steroid Therapy: No - Psycho/Social Hx Substance Use: No Hx Alcohol Use: Yes - OCCAS Hx Anxiety: No Hx Depression: No Mental Illness: No Hx Dementia: No - Miscellaneous Hx Cancer: Yes - PROSTATE Recent Exposure to Contagious Disease: No Active MRSA: No Hx of C-Diff: No Any Loose Teeth: No Additional information pertinent to anesthesia:: 1 PACK PER WEEK CIGARETTES FOR 20+ YRS Allergies No Known Allergies Allergy (Verified 08/24/20 10:30) - Discharge Is Pt Admitted From a Long-Term, or a Residential: No Who Could Help: MOTHER After D/C, Where Do you Plan to Go: Return Home - Physical Exam Vitals/I&O's: Vital Signs Temp Pulse Resp BP Pulse Ox 98.7 F 60 16 147/75 H 97 08/30/20 09:36 08/30/20 09:36 08/30/20 09:36 08/30/20 09:36 08/30/20 09:36 Oxygen Delivery Method Room Air Weight: 192 lb 3.889 oz Body Mass Index (BMI) 26.0 General: Alert, Oriented x3 Neck: No JVD Lungs: Normal air movement Cardiovascular: Regular rate, Regular Rhythm Abdomen: Soft, Non Tender, Non-Distended Current Medications Lactated Ringer's () 1,000 mls @ 100 mls/hr IV .Q10H MARGIE Last Admin: 08/30/20 09:50 Dose: 100 mls/hr Documented by: Assessment/Plan 60-year-old male for screening colonoscopy I explained endoscopy in detail to the patient. I explained the risks including but not limited to stroke or heart attack with anesthesia, perforation of the GI tract, bleeding, infection. I explained that any of these could necessitate further emergency surgery. The patient understands and all questions were answered sufficiently. The patient wishes to proceed with procedure. We discussed the current risks associated with COVID-19. While it is understood that there is a community spread of COVID-19, the risk of larry COVID-19 while at [facility] ([facility]) is very low; however, the risk cannot be completely mitigated because of the community spread of the disease. We discussed in detail the risk of exposure to and/or potential harm posed by the COVID-19 virus with having a surgery/procedure at this time versus the risk of delaying the surgery/procedure. It is not possible to know either the risk of delaying the surgery or procedure or chance of getting an infection with perfect accuracy, but a joint decision was made to proceed at this time with the scheduled surgery/procedure as indicated on the consent form. Patient was notified that we will need to comply with any screening or testing [facility] wishes to perform or that surgery may be delayed for any positive results. Jorge Oconnor MD Pager: [facility] [address] [place] [address] [address] [place] [address] Office: Surgery Risks - Colonoscopy Risks Include but are not Limited To: Risks include but are not limited to: Bleeding, perforation requiring further surgery, inability to complete colonoscopy requiring barium enema.
--- NOTE | 2020-08-30 10:46 | OP.CCLET_ITS ---
08/30/2020 Primitivo You [address] [place] [address] Re : Colonoscopy procedure for Ramón Adams Dear Dr. You This procedure was performed on Sunday, August 30, 2020. My impressions and recommendations are as follows: Impressions : - Two polyps in the descending colon and in the ascending colon, removed with a hot snare. Resected and retrieved. - The examination was otherwise normal on direct and retroflexion views. Recommendations : - Discharge patient to home. - Resume previous diet. - Continue present medications. - Await pathology results. - Repeat colonoscopy in 5 years for surveillance based on pathology results. My findings are described in the full procedure note, which is enclosed. If I can be of further assistance, please feel free to contact me at Doctor phone number(s): , Work: . Sincerely, Jorge Oconnor MD 08/30/2020 10:45:51 AM This report has been signed electronically.
--- NOTE | 2020-08-30 10:46 | OP.COLON_ITS ---
Patient Name: Ramón Adams Procedure Date: 08/30/2020 10:19 AM Date of : 1960 Age: 60 Procedure: Colonoscopy Indications: Screening for colorectal malignant neoplasm Providers: Jorge Oconnor MD Referring MD: Primitivo You Medicines: Monitored Anesthesia Care Patient Profile: This is a 60 year old male. Refer to note in patient chart for documentation of history and physical. Last Colonoscopy: none. The patient's first colonoscopy is today. Complications: No immediate complications. Procedure: Pre-Anesthesia Assessment: - Prior to the procedure, a History and Physical was performed, and patient medications and allergies were reviewed. The patient's tolerance of previous anesthesia was also reviewed. The risks and benefits of the procedure and the sedation options and risks were discussed with the patient. All questions were answered, and informed consent was obtained. Prior Anticoagulants: The patient has taken no previous anticoagulant or antiplatelet agents. After reviewing the risks and benefits, the patient was deemed in satisfactory condition to undergo the procedure. After I obtained informed consent, the scope was passed under direct vision. Throughout the procedure, the patient's blood pressure, pulse, and oxygen saturations were monitored continuously. The colonoscope was introduced through the anus and advanced to the cecum, identified by appendiceal orifice and ileocecal valve. The colonoscopy was performed without difficulty. The patient tolerated the procedure well. The quality of the bowel preparation was good. Scope In: 10:25:28 AM Scope Withdrawal Time 0 hours 7 minutes 50 seconds Scope Out: 10:43:25 AM Total Procedure Duration Time 0 hours 17 minutes 57 seconds Findings: Two polyps were found in the descending colon and ascending colon. These polyps were removed with a hot snare. Resection and retrieval were complete. The exam was otherwise without abnormality on direct and retroflexion views. Impression: - Two polyps in the descending colon and in the ascending colon, removed with a hot snare. Resected and retrieved. - The examination was otherwise normal on direct and retroflexion views. Recommendation: - Discharge patient to home. - Resume previous diet. - Continue present medications. - Await pathology results. - Repeat colonoscopy in 5 years for surveillance based on pathology results. Procedure Code(s): --- Professional --- 19668, Colonoscopy, flexible; with removal of tumor(s), polyp(s), or other lesion(s) by snare technique Diagnosis Code(s): --- Professional --- Z12.11, Encounter for screening for malignant neoplasm of colon D12.4, Benign neoplasm of descending colon D12.2, Benign neoplasm of ascending colon CPT copyright 2017 [employer] [place] [employer]. All rights reserved. The codes documented in this report are preliminary and upon furnace setter review may be revised to meet current compliance requirements. Jorge Oconnor MD 08/30/2020 10:45:51 AM This report has been signed electronically. Number of Addenda: 0 Note Initiated On: 08/30/2020 10:19 AM
--- NOTE | 2020-08-30 11:00 | COLBX_PTH ---
PATIENT: ERNESTO BAZAN LOC: EN U#:[id number] AGE/SX: 60/M ROOM: RE08/30/[address]: Dr. Jorge Oconnor MD : 1960 BED: DIS: 08/30/2020 SPEC #: [id number] RECD: 08/30/20 13:04 STATUS: NASRIN RIRI #: [id number] JOHNNIE: 08/30/20 11:[address]: Jorge Oconnor DEPT: SURGICAL PATHOLOGY RECD BY: Susan Freire ENTERED: 08/30/20 13:29 SP TYPE: COLON BX OTHR DR: Dr. Primitivo You MD Tissues: A - COLON BIOPSY B - Descending colon Procedures: Surgery Specimen Level IV HEADER OPERATION: Colonoscopy - open access (MAC) PRE-OP DIAGNOSIS: Screening colonoscopy TISSUE SUBMITTED: A - Hepatic flexure polyp, B - Descending polyp MICROSCOPIC DIAGNOSIS A. Hepatic flexure polyp, biopsy: Fragments of tubular adenoma. B. Descending colon polyp, biopsy: Tubular adenoma. KARTHIK:trudy 08/31/20 MICROSCOPIC DESCRIPTION Slides are reviewed. GROSS DESCRIPTION A - Received in fixative is one container labeled with the patient's name and designated hepatic flexure polyp. The specimen consists of multiple irregular fragments of burns soft tissue that in aggregate measure 0.5 x 0.5 x 0.1 cm. The specimen is totally submitted in one cassette. B - Received in fixative is one container labeled with the patient's name and designated descending polyp. The specimen consists of one irregular fragment of light burns soft tissue that measures 0.3 x 0.2 x 0.1 cm. The specimen is totally submitted in one cassette. / KARTHIK:trudy 08/30/20 TC:1 CPT: 60935 x2
== END 2020-08-30 11:38 | disposition home or self-care (01) ==
LOC: EN 09:14 → AC 09:15
PROVIDERS: Anesthesiology; PCP Family Medicine; Referring Provider Family Medicine; Visit Provider Surgery
PROC: 0DJD8ZZ Inspection of Lower Intestinal Tract, Via Natural or Artificial Opening Endoscopic (ICD-10-PCS; CPT 45378; principal; 2020-08-30 10:55)
DX: Z12.11 Encounter for screening for malignant neoplasm of colon (principal); D12.4 Benign neoplasm of descending colon; D12.3 Benign neoplasm of transverse colon; Z20.828 Contact with and (suspected) exposure to other viral communicable diseases; F17.210 Nicotine dependence, cigarettes, uncomplicated
CPT/HCPCS: 45385; 87635; 88305; C9803; J7120; J2405; U0003

== ENCOUNTER → 2020-12-15 08:44 | Outpatient (CLI) | payer BC, SELFPAY ==
[2020-08-30 09:36] VITALS: BMI 26.0
[2020-12-15 10:14] LABS: Anion Gap 6 (5-15); BUN 12 mg/dL (7-18); BUN/Creat Ratio 13.2 RATIO (10-20); Calcium,Total 8.7 mg/dL (8.5-10.1); Chloride 109 mmol/L (98-107); Creatinine, Serum 0.91 mg/dL (0.70-1.30); EST Glomerular Filtration Rate 90 mL/min (>60); Est Glom Filt Rate - Afr Amer 108 mL/min (>60); Glucose 95 mg/dL (74-106); PSA,Total- Diagnostic 0.03 ng/mL (0.0-4.0); Potassium 3.5 mmol/L (3.5-5.1); Sodium Level 139 mmol/L (136-145)
== END ==
PROVIDERS: PCP Family Medicine; Referring Provider Urology; Visit Provider Urology
DX: C61 Malignant neoplasm of prostate (principal)
CPT/HCPCS: 36415; 80048; 84153

== ENCOUNTER → 2021-01-11 08:46 | Outpatient (CLI) | payer BC, SELFPAY ==
[2020-08-30 09:36] VITALS: BMI 26.0
[2021-01-11 10:51] LABS: Vitamin D,25 Hydroxy 9.3 ng/mL
== END ==
PROVIDERS: PCP Family Medicine; Referring Provider Family Medicine; Visit Provider Family Medicine
DX: E55.9 Vitamin D deficiency, unspecified (principal)
CPT/HCPCS: 36415; 82306

== ENCOUNTER → 2021-06-15 09:53 | Outpatient (CLI) | payer BC, SELFPAY ==
[2020-08-30 09:36] VITALS: BMI 26.0
[2021-06-15 11:00] LABS: PSA,Total- Diagnostic 0.04 ng/mL (0.0-4.0)
== END ==
PROVIDERS: PCP Family Medicine; Visit Provider Urology
DX: C61 Malignant neoplasm of prostate (principal)
CPT/HCPCS: 36415; 84153